=== PATIENT | female | born 1965 | race Hispanic/Latino ===

== ENCOUNTER 2020-04-27 01:33 | Emergency (ER) | payer OTHER ==
[2020-04-27] MEDS ORDERED: Ketorolac Tromethamine 30 MG/ML VIAL ONE (01:43)
[2020-04-27 01:54] LABS: #Eosinphils 0.1 thou/uL (0.0-0.7); #Lymphocytes 2.6 thou/uL (1.20-3.40); #Monocytes 0.4 thou/uL (0.11-0.59); #Neutrophils 2.5 thou/uL (1.40-6.50); %Basophils 0.4 % (0.0-1.0); %Eosinophils 1.4 % (0.0-10.0); %Lymphocytes 45.9 % (21.0-51.0); %Monocytes 7.7 % (0.0-10.0); %Neutrophils 44.6 % (42.0-75.0); Hemoglobin 12.5 g/dL (12.0-16.0); Mean Corpuscular HGB CONC 32.9 g/dL (32.0-36.0); Mean Corpuscular Hemoglobin 26.6 pg (27.0-31.0); Mean Platelet Volume 7.8 fL (7.4-10.4); Platelet Count 253 thou/uL (130-400); RBC Distribution Width 13.7 % (11.5-14.5); Red Blood Cell (RBC) Count 4.68 mill/uL (4.20-5.40); White Blood Cell (WBC) Count 5.7 thou/uL (4.8-10.8)
[2020-04-27 02:21] LABS: ALT (SGPT) 27 U/L (8-55); AST (SGOT) 30 U/L (5-34); Alkaline Phosphatase 100 U/L (40-110); Anion Gap 15 mmol/L (10-20); BUN (Urea Nitrogen) 11 mg/dL (9.8-20.1); Bilirubin, Total 0.3 mg/dL (0.2-1.2); CK (CPK) 60 U/L (29-168); Calc. Creatinine Clearance 0 mL/min (70-130); Carbon Dioxide 20 mmol/L (22-29); Chloride 107 mmol/L (98-107); Globulin 3.6 g/dL (2.4-3.5); Glucose 99 mg/dL (70-105); Lipase 50 U/L (8-78); Potassium 3.9 mmol/L (3.5-5.1); Protein, Total 7.6 g/dL (6.0-8.3); Sodium 138 mmol/L (136-145)
[2020-04-27] MEDS ORDERED: Lidocaine Viscous Sol 2% 15 ml UD Cup ONE (03:03)
[2020-04-27] MEDS ORDERED: Mag-Al 1200 mg/1200 mg/30 ML UDCUP ONE (03:03)
[2020-04-27 04:04] LABS: Troponin I 0.015 ng/mL (< 0.028)
--- NOTE | 2020-04-27 07:38 | RAD ---
Portable frontal chest radiograph: 04/27/2020 COMPARISON: None available HISTORY: Short of breath, chest pain FINDINGS: Lungs are clear. Heart and mediastinal contours appear within normal limits. IMPRESSION: No acute findings.
== END 2020-04-27 04:37 ==
LOC: ERS 01:33
DX: R07.89 Other chest pain (principal)
CPT/HCPCS: 36415; 71045; 80053; 82550; 83690; 84484; 85025; 93005; 96374; J1885

== ENCOUNTER 2020-07-02 13:03 | Outpatient (CLI) | payer OTHER | END 2020-07-02 13:04 | disposition home or self-care (01) | LOC: BICMRI 13:03 | PROVIDERS: ATTEND Family Medicine | DX: M25.562 Pain in left knee (principal); M25.462 Effusion, left knee; S83.242D Other tear of medial meniscus, current injury, left knee, subsequent encounter; S83.282D Other tear of lateral meniscus, current injury, left knee, subsequent encounter; M94.262 Chondromalacia, left knee ==

== ENCOUNTER 2020-07-10 12:22 | Emergency (ER) | payer OTHER ==
[~2020-07-10 12:22] MED LIST: Iopamidol-370 76% 500 ML 1 ML ONE
[2020-07-10 13:54] LABS: Hemoglobin 12.3 g/dL (12.0-16.0); Mean Corpuscular HGB CONC 32.9 g/dL (32.0-36.0); Mean Corpuscular Hemoglobin 25.3 pg (27.0-31.0); Mean Corpuscular Volume 76.7 fL (78.0-98.0); Mean Platelet Volume 8.7 fL (7.4-10.4); Platelet Count 229 thou/uL (130-400); RBC Distribution Width 13.5 % (11.5-14.5); Red Blood Cell (RBC) Count 4.88 mill/uL (4.20-5.40); White Blood Cell (WBC) Count 9.6 thou/uL (4.8-10.8)
[2020-07-10 14:16] LABS: Band 21 % (5-11); Eosinophils 1 % (0-10); Hypochromia SLIGHT = 6-15 cells (100X) (0-5/hpf); Lymphocytes 7 % (21-51); MDiff Complete? YES; Microcytosis SLIGHT = 6-15 cells (100X) (0-5/hpf); Monocytes 13 % (0-10); Neutrophil 57 % (42-75); Platelet Morphology Comment Appears Adequate; Polychromasia SLIGHT = 2-3 cells (100X) (0-2/hpf); Vacuoles SLIGHT
[2020-07-10 14:36] LABS: ALT (SGPT) 18 U/L (8-55); AST (SGOT) 16 U/L (5-34); Albumin 3.5 g/dL (3.5-5.0); Alkaline Phosphatase 97 U/L (40-110); Anion Gap 19 mmol/L (10-20); BUN (Urea Nitrogen) 13 mg/dL (9.8-20.1); Bilirubin, Total 0.7 mg/dL (0.2-1.2); Calc. Creatinine Clearance 0 mL/min (70-130); Carbon Dioxide 19 mmol/L (22-29); Chloride 98 mmol/L (98-107); Globulin 3.8 g/dL (2.4-3.5); Glucose 113 mg/dL (70-105); Potassium 3.7 mmol/L (3.5-5.1); Protein, Total 7.3 g/dL (6.0-8.3); Sodium 132 mmol/L (136-145)
[2020-07-10] MEDS ORDERED: Promethazine HCl 25 MG/ML VIAL ONE ×2 (18:07→19:18)
[2020-07-10] MEDS ORDERED: Morphine 4 MG/ML VIAL ONE ×2 (18:07→19:18)
[2020-07-10 19:05] LABS: Bacteria/HPF None Seen HPF (None Seen); Bilirubin 1+ (Negative); Blood, Urine 1+ (Negative); Clarity Clear (Clear); Glucose, Urine (Dipstick) Normal (Negative); Ketone, Urine 100 mg/dL (Negative); Leukocyte Negative Leu/uL (Negative); Nitrite Negative (Negative); Protein, Urine (Dipstick) 50 mg/dL (Neg-Trace); Specific Gravity, Urine 1.031 (1.002-1.036); Squamous Epithelial 0-3 HPF (0-3); WBC/HPF 0-3 HPF (0-3)
[2020-07-10] MEDS ORDERED: Dicyclomine 20 MG TAB ONE (19:18)
== END 2020-07-10 21:10 | disposition home or self-care (01) ==
LOC: EEVIPCON 12:22 → ERS 12:22
DX: A09 Infectious gastroenteritis and colitis, unspecified (principal); Z85.42 Personal history of malignant neoplasm of other parts of uterus
CPT/HCPCS: 36415; 74177; 80053; 81003; 81015; 83605; 85025; 87086; 87324; 87449; 96365; 96372; 96374; J0500; J2270; J2550; Q9967

== ENCOUNTER 2021-02-18 06:55 | Day surgery (SDC) | payer OTHER ==
[2021-02-17 13:34] VITALS: BMI 28.5
[2021-02-18] MEDS ORDERED: PROPOFOL 200 MG/20 ML VIAL ONE (09:10)
[2021-02-18] MEDS ORDERED: Lidocaine 1% PF 5 ML VIAL ONE (09:10)
[2021-02-18] MEDS ORDERED: Ondansetron ODT 4 MG TAB ONE ×2 (10:23→10:25)
== END 2021-02-18 10:56 ==
LOC: SDC 06:55
PROVIDERS: ATTEND Internal Medicine
PROC: 0D758ZZ Dilation of Esophagus, Via Natural or Artificial Opening Endoscopic (ICD-10-PCS; principal; 2021-02-18)
PROC: 0DJD8ZZ Inspection of Lower Intestinal Tract, Via Natural or Artificial Opening Endoscopic (ICD-10-PCS; principal; 2021-02-18)
DX: Z12.11 Encounter for screening for malignant neoplasm of colon (principal); K57.30 Diverticulosis of large intestine without perforation or abscess without bleeding; K29.80 Duodenitis without bleeding; K26.9 Duodenal ulcer, unspecified as acute or chronic, without hemorrhage or perforation; K44.9 Diaphragmatic hernia without obstruction or gangrene; R13.10 Dysphagia, unspecified; R12 Heartburn; R68.81 Early satiety; K21.9 Gastro-esophageal reflux disease without esophagitis
CPT/HCPCS: Q0162

== ENCOUNTER 2021-11-08 16:51 | Emergency (ER) | payer OTHER ==
[2021-11-08] MEDS ORDERED: Acetaminophen 500 MG TAB ONE (17:48)
== END 2021-11-08 17:54 ==
LOC: EEVIPCON 16:51 → ERS 16:51
DX: S90.31XA Contusion of right foot, initial encounter (principal); W01.0XXA Fall on same level from slipping, tripping and stumbling without subsequent striking against object, initial encounter; S80.211A Abrasion, right knee, initial encounter

== ENCOUNTER 2021-11-13 07:50 | Outpatient (CLI) | payer OTHER | END 2021-11-13 07:51 | disposition home or self-care (01) | LOC: BICULT 07:50 | PROVIDERS: ATTEND Nurse Practitioner Family | DX: R22.42 Localized swelling, mass and lump, left lower limb (principal) | CPT/HCPCS: 76999 ==